=== PATIENT | male | born 2000 | race Caucasian/White ===

== ENCOUNTER 2021-03-25 12:25 | Emergency (ER) | payer SELFPAY ==
[~2021-03-25] VITALS: Ht 188 cm; Wt 68.2 kg
[2021-03-25 12:40] VITALS: Ht 188 cm; Wt 68.2 kg
--- NOTE | 2021-03-25 16:31 | NUR ---
DR. COLLINS NOTIFIED AND SITTER ORDERED. SITTER IN LINE OF SIGHT. NOTIFIED CHARGE NURSE AND ATTENDING IN REGARDS TO ASSESSMENTS FINDINGS. RESOURCES GIVEN TO PT AND SAFETY PLAN INTIATED. 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
[2021-03-25 16:58] LABS: SARS-CoV-2 ANTIGEN NEGATIVE- SARS-COV-2 (NEGATIVE)
[2021-03-25 20:56] LABS: UDS - AMPHET NEGATIVE QUAL (NEGATIVE); UDS - BARB NEGATIVE QUAL (NEGATIVE); UDS - BENZO NEGATIVE QUAL (NEGATIVE); UDS - COCAINE NEGATIVE QUAL (NEGATIVE); UDS - OPIATE NEGATIVE QUAL (NEGATIVE); UDS - PCP NEGATIVE QUAL (NEGATIVE); UDS - THC POSITIVE QUAL (NEGATIVE)
[2021-03-25 21:09] LABS: BILIRUBIN NEGATIVE (NEGATIVE); KETONE LARGE mg/dL (NEGATIVE); NITRITE NEGATIVE (NEGATIVE); UROBILINOGEN NORMAL mg/dL (< 2)
[2021-03-25 21:10] LABS: BACTERIA FEW HPF (NONE SEEN); WHITE CELLS - URINE 0-5 HPF (0-1)
[2021-03-25 21:56] LABS: BASOPHILS 0.5 % (0-2); EOSINOPHILS 2.6 % (0-7); HEMATOCRIT 39.7 % (42.0-54.0); HEMOGLOBIN 13.4 g/dL (13.5-17.5); IMMATURE GRANULOCYTES 0.2 % (0-5); LYMPHOCYTE ABS# 1.19 10x3/uL (1.32-3.57); LYMPHOCYTES 28.5 % (15-50); MCH 30.9 pg (26.0-34.0); MCHC 33.8 g/dL (31.0-37.0); MCV 91.5 fL (80.0-100.0); MEAN PLATELET VOLUME 9.8 fL (7.4-10.4); MONOCYTES 16.1 % (2-11); NEUTROPHIL ABS# 2.17 10x3/uL (1.78-5.38); NEUTROPHILS 52.1 % (40-80); PLATELET COUNT 272 10x3/uL (130-400); RBC 4.34 10x6/uL (4.20-6.10); WBC 4.2 10x3/uL (4.8-10.8)
[2021-03-25 22:03] LABS: CALC OSMOLALITY 277 mosm/kg (275-300); CALCIUM 8.8 mg/dL (8.5-10.1); CARBON DIOXIDE 26.8 mmol/L (21.0-32.0); CHLORIDE - SERUM 103 mmol/L (98-107); CREATININE - SERUM 0.8 mg/dL (0.6-1.3); GLUCOSE 81 mg/dL (74-106); POTASSIUM - SERUM 3.2 mmol/L (3.5-5.1); SODIUM 140 mmol/L (136-145); UREA NITROGEN 13 mg/dL (7-18); eGFR NON AFRICAN AMERICAN > 90 mL/min (90-120)
[2021-03-25 22:09] LABS: ALBUMIN 3.8 g/dL (3.4-5.0); ALKALINE PHOSPHATASE 55 U/L (30-120); ALT (SGPT) 33 U/L (10-68); BILIRUBIN - TOTAL 0.62 mg/dL (0.2-1.3); PROTEIN - SERUM 6.4 g/dL (6.4-8.2)
[2021-03-26 04:11] LABS: THYROID STIMULATING HORMONE 0.76 uIU/mL (0.36-3.74)
[2021-03-26 08:35] VITALS: BP 122/75
== END 2021-03-26 08:38 ==
LOC: D.ER 12:25
PROVIDERS: Family Medicine; Student in an Organized Health Care Education/Training Program
DX: R45.851 Suicidal ideations (principal)

== ENCOUNTER 2021-04-24 17:15 | Emergency (ER) | payer MEDICARE ==
[~2021-04-24] VITALS: Ht 188 cm; Wt 54.5 kg
[2021-04-24 17:23] VITALS: Ht 188 cm; Wt 54.5 kg
[2021-04-24 18:00] LABS: BASOPHILS 0.3 % (0-2); EOSINOPHILS 1.7 % (0-7); HEMOGLOBIN 14.6 g/dL (13.5-17.5); LYMPHOCYTES 14.7 % (15-50); MCH 30.4 pg (26.0-34.0); MCV 89.5 fL (80.0-100.0); MEAN PLATELET VOLUME 7.7 fL (7.4-10.4); MONOCYTES 9.2 % (2-11); NEUTROPHILS 74.1 % (40-80); RDW 12.1 % (11.5-14.5); WBC 13.5 10x3/uL (4.8-10.8)
[2021-04-24 18:01] LABS: PLATELET COUNT 336 10x3/uL (130-400)
[2021-04-24 18:04] LABS: BILIRUBIN NEGATIVE (NEGATIVE); KETONE LARGE mg/dL (NEGATIVE); NITRITE NEGATIVE (NEGATIVE); UROBILINOGEN NORMAL mg/dL (< 2)
[2021-04-24 18:16] LABS: CALC OSMOLALITY 284 mosm/kg (275-300); CALCIUM 9.2 mg/dL (8.5-10.1); CARBON DIOXIDE 29.3 mmol/L (21.0-32.0); CHLORIDE - SERUM 103 mmol/L (98-107); CREATININE - SERUM 0.9 mg/dL (0.6-1.3); GLUCOSE 85 mg/dL (74-106); POTASSIUM - SERUM 3.3 mmol/L (3.5-5.1); SODIUM 143 mmol/L (136-145); UREA NITROGEN 14 mg/dL (7-18); eGFR NON AFRICAN AMERICAN > 90 mL/min (90-120)
[2021-04-24 18:22] LABS: UDS - AMPHET POSITIVE QUAL (NEGATIVE); UDS - BARB NEGATIVE QUAL (NEGATIVE); UDS - BENZO POSITIVE QUAL (NEGATIVE); UDS - COCAINE NEGATIVE QUAL (NEGATIVE); UDS - OPIATE NEGATIVE QUAL (NEGATIVE); UDS - PCP NEGATIVE QUAL (NEGATIVE); UDS - THC POSITIVE QUAL (NEGATIVE)
[2021-04-24 18:22] LABS: ALBUMIN 4.7 g/dL (3.4-5.0); ALKALINE PHOSPHATASE 55 U/L (30-120); ALT (SGPT) 75 U/L (10-68); BILIRUBIN - TOTAL 1.35 mg/dL (0.2-1.3); PROTEIN - SERUM 7.7 g/dL (6.4-8.2)
[2021-04-24 23:51] VITALS: BP 139/90
[2021-04-25 01:46] LABS: SARS-CoV-2 ANTIGEN NEGATIVE- SARS-COV-2 (NEGATIVE)
[2021-04-25 12:58] LABS: CALC OSMOLALITY 279 mosm/kg (275-300); CALCIUM 8.9 mg/dL (8.5-10.1); CARBON DIOXIDE 31.3 mmol/L (21.0-32.0); CHLORIDE - SERUM 105 mmol/L (98-107); CREATININE - SERUM 1.1 mg/dL (0.6-1.3); GLUCOSE 100 mg/dL (74-106); SODIUM 140 mmol/L (136-145); UREA NITROGEN 14 mg/dL (7-18); eGFR NON AFRICAN AMERICAN 89 mL/min (90-120)
[2021-04-25 13:00] LABS: POTASSIUM - SERUM 4.3 mmol/L (3.5-5.1)
== END 2021-04-25 14:30 | disposition other institution (70) ==
LOC: D.ER 17:15
PROVIDERS: Family Medicine; Student in an Organized Health Care Education/Training Program
DX: R45.851 Suicidal ideations (principal); S10.91XA Abrasion of unspecified part of neck, initial encounter; S11.91XA Laceration without foreign body of unspecified part of neck, initial encounter; X58.XXXA Exposure to other specified factors, initial encounter; T45.0X1A Poisoning by antiallergic and antiemetic drugs, accidental (unintentional), initial encounter; X83.8XXA Intentional self-harm by other specified means, initial encounter

== ENCOUNTER 2021-05-12 22:05 | Emergency (ER) | payer MEDICARE ==
[~2021-05-12] VITALS: Ht 188 cm; Wt 59.1 kg
[2021-05-12 22:17] VITALS: Ht 188 cm; Wt 59.1 kg
[2021-05-12 23:02] LABS: BASOPHILS 0.3 % (0-2); EOSINOPHILS 1.3 % (0-7); HEMATOCRIT 42.3 % (42.0-54.0); HEMOGLOBIN 14.2 g/dL (13.5-17.5); LYMPHOCYTES 13.5 % (15-50); MCH 30.2 pg (26.0-34.0); MCHC 33.5 g/dL (31.0-37.0); MCV 90.1 fL (80.0-100.0); MEAN PLATELET VOLUME 7.7 fL (7.4-10.4); MONOCYTES 8.3 % (2-11); NEUTROPHILS 76.6 % (40-80); PLATELET COUNT 357 10x3/uL (130-400); RBC 4.69 10x6/uL (4.20-6.10); RDW 12.5 % (11.5-14.5); WBC 13.3 10x3/uL (4.8-10.8)
[2021-05-12 23:17] LABS: CALC OSMOLALITY 285 mosm/kg (275-300); CALCIUM 9.2 mg/dL (8.5-10.1); CHLORIDE - SERUM 105 mmol/L (98-107); GLUCOSE 93 mg/dL (74-106); POTASSIUM - SERUM 3.5 mmol/L (3.5-5.1); SODIUM 142 mmol/L (136-145); UREA NITROGEN 20 mg/dL (7-18); eGFR NON AFRICAN AMERICAN > 90 mL/min (90-120)
[2021-05-12 23:28] LABS: ALBUMIN 4.4 g/dL (3.4-5.0); ALKALINE PHOSPHATASE 60 U/L (30-120); ALT (SGPT) 53 U/L (10-68); BILIRUBIN - TOTAL 0.86 mg/dL (0.2-1.3); MAGNESIUM - SERUM 2.1 mg/dL (1.8-2.4); PROTEIN - SERUM 7.4 g/dL (6.4-8.2)
[2021-05-12 23:28] LABS: UDS - AMPHET POSITIVE QUAL (NEGATIVE); UDS - BARB NEGATIVE QUAL (NEGATIVE); UDS - BENZO NEGATIVE QUAL (NEGATIVE); UDS - COCAINE NEGATIVE QUAL (NEGATIVE); UDS - OPIATE NEGATIVE QUAL (NEGATIVE); UDS - PCP NEGATIVE QUAL (NEGATIVE); UDS - THC POSITIVE QUAL (NEGATIVE)
[2021-05-13 00:06] LABS: BILIRUBIN NEGATIVE (NEGATIVE); KETONE NEGATIVE (NEGATIVE); NITRITE NEGATIVE (NEGATIVE); UROBILINOGEN NORMAL mg/dL (< 2)
[2021-05-13 00:07] LABS: AMORPHOUS SEDIMENT >1+ LPF (NONE SEEN); BACTERIA FEW HPF (NONE SEEN); SQUAMOUS EPITHELIAL 0-5 HPF (0-4); WHITE CELLS - URINE 0-5 HPF (0-1)
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
[2021-05-13 09:08] VITALS: BP 120/70
== END 2021-05-13 09:10 ==
LOC: D.ER 22:05
PROVIDERS: Family Medicine
DX: R45.851 Suicidal ideations (principal); F15.10 Other stimulant abuse, uncomplicated